=== PATIENT | female | born 1980 | race Caucasian/White ===

== ENCOUNTER 2017-09-28 13:26 | Observation (INO) ==
[2017-09-28] MEDS ORDERED: ALBUTEROL SULFATE 5 MG/ML NEB SOLUTION BOTTLE NEB ONE (13:48)
--- NOTE | 2017-09-28 14:12 | Emergency Department Note ---
General Adult HPI - General Chief complaint: Cold/Flu Symptoms Stated complaint: cough Time Seen by Provider: 09/28/17 13:32 Source: patient Mode of arrival: ambulatory Limitations: no limitations - History of Present Illness HPI Narrative: 37-year-old female presents with worsening cough and shortness of breath. She has had this for about a week. She does have a history of asthma and usually uses albuterol at home. She was seen at [facility] and diagnosed with pneumonia. She was given a Z-Ant to start and then they started her on Levaquin on Monday. She is taking oral Levaquin as well. She started on a Medrol Dosepak but then went back on Monday because she was not feeling better and they started her on 50 mg of prednisone daily. She was sent here for further evaluation. She has not had any blood work done. She is using DuoNeb' s every 4 hours at home. Her last DuoNeb was around noon. She has had fevers at home ranging from 100.1-100.3. She did have a fever of 100.3 before she left home. She gets short of breath when she exerts herself. She is using a nicotine patch at this time and is not smoking. She denies nausea vomiting or diarrhea. - Related Data Home Medications Medication Instructions Recorded Confirmed HYDROcodone/APAP 10/325MG [[place] 10 mg PO Q4HP PRN 08/26/15 05/30/17 10/325Mg] Ondansetron [Zofran Odt] 4 mg PO Q4HP PRN 08/26/15 05/30/17 Sertraline [Zoloft] 100 mg PO HS 08/26/15 05/30/17 Topiramate [Topamax] 125 mg PO HS 08/26/15 05/30/17 Previous Rx's Medication Instructions Recorded cyclobenzaprine 10 mg tablet 10 mg PO qhs #30 tab 05/30/17 Allergies Allergy/AdvReac Type Severity Reaction Status Date / Time bupropion [From Wellbutrin] AdvReac Intermediate RAPID HR Verified 09/28/17 13: 30 Review of Systems All systems ED: reviewed and negative except as stated. Past Medical History - Past Medical History Medical history: Reports: asthma Psychiatric history: Reports: depression [employer] history: Reports: non-contributory Surgical history ED: Reports: cholecystectomy Family history: Reports: non-contributory - Social History smoking status: Current every day smoker Alcohol use: Reports: None Drug use: Reports: none Physical Exam Limitations: no limitations General appearance: alert, in no apparent distress Head: atraumatic Eye: Present: normal appearance. Absent: conjunctival injection Neck: Present: normal inspection, full ROM Chest: Present: normal inspection, symmetric chest wall rise Respiratory: Present: wheezes (in all hughes) Cardiovascular: Present: tachycardia, normal heart sounds Abdominal: Present: soft, normal bowel sounds. Absent: tenderness Extremities: Present: normal inspection, full ROM Neurological: Present: alert, oriented X3 Psychiatric: Present: normal affect, normal mood Skin: Present: warm, dry, intact Course Course Narrative: She will be admitted by Dr. Espinoza. Vital Signs Temperature 98.2 F 09/28/17 13:26 Pulse Rate 99 H 09/28/17 13:26 Respiratory Rate 16 09/28/17 13:26 Blood Pressure 134/89 09/28/17 13:26 Pulse Oximetry (%) 98 09/28/17 13:26 Temperature 99.2 F H 09/28/17 14:08 Pulse Rate 121 H 09/28/17 15:24 Respiratory Rate 18 09/28/17 13:40 Blood Pressure 129/80 09/28/17 15:24 Pulse Oximetry (%) 99 09/28/17 15:24 Medical Decision Making - Medical Records Medical records reviewed: Yes I reviewed the patient's medical records. - Lab Data Lab results reviewed: Yes I reviewed the patient's lab results. Result diagrams: 09/28/17 13:45 09/28/17 13:45 Lab Results 09/28/17 09/28/17 09/28/17 Range/Units 13:45 13:45 13:45 WBC 18.5 H (4.5-11.0) K/mcL RBC 4.94 (4.00-5.20) M/mcL Hgb 14.8 (12.0-15.0) g/dL Hct 44.5 (36.0-48.0) % MCV 90.1 (80.0-100.0) fL MCH 30.0 (26.0-34.0) pg MCHC 33.3 (31.0-36.0) g/dL RDW 12.1 (11.5-14.5) % Plt Count 264 (140-440) K/mcL MPV 9.0 (7.4-10.4) fL Total Counted 100 Seg Neutrophils % 75 (38-78) % Band Neutrophils % Not Reportable Lymphocytes % 17 (15-49) % Monocytes % (Manual) 3 (1-12) % Eosinophils % (Manual) 3 (0-7) % Reactive Lymphocytes 2 (0-2) % Platelet Estimate Normal (NORMAL) RBC Morphology Normal (NORMAL) VBG Lactic Acid 2.3 H (0.5-2.2) mmol/L Sodium 142 (133-145) mmol/L Potassium 3.2 L (3.3-5.1) mmol/L Chloride 100 (96-108) mmol/L Carbon Dioxide 27 (22-30) mmol/L Anion Gap 15.0 (8-16) BUN 7 (6-20) mg/dl Creatinine 0.7 (0.6-1.1) mg/dl GFR Calculation 112 Glucose 102 (70-105) mg/dL Calcium 9.0 (8.6-10.4) mg/dl Total Bilirubin 0.2 (0.0-1.0) mg/dL AST 31 (0-37) U/l ALT 47 H (0-40) U/l Alkaline Phosphatase 87 (39-117) U/L Total Protein 7.4 (5.9-8.4) gm/dL Albumin 3.8 (3.2-5.2) gm/dL Globulin 3.6 (2.2-3.7) gm/dL Albumin/Globulin Ratio 1.1 (1.0-2.3) - Radiology Data Radiology results reviewed: Yes I reviewed the patient's radiology results. Improved infiltrate Disposition Pt seen by [employer]/PA only: Yes Clinical Impression: Mycoplasma pneumonia, Asthma exacerbation Disposition: Xfer As Outpt/Obs ([facility]) Condition: Fair
[2017-09-28 14:15] LABS: Mean Cell Volume 90.1 fL (80.0-100.0); Mean Corpuscular HGB Conc 33.3 g/dL (31.0-36.0); Platelet Count 264 K/mcL (140-440); RBC 4.94 M/mcL (4.00-5.20); Red Cell Distribution Width 12.1 % (11.5-14.5)
--- NOTE | 2017-09-28 14:19 | XRay Report ---
CLINICAL INFORMATION: Cough fever and shortness of breath COMPARISON: 09/26/2017 FINDINGS: Bilateral perihilar infiltrates have improved considerably since the chest x-ray two days ago. Moderate residual is noted in the right infrahilar region. Underlying mild bronchitis changes noted. No effusions. Heart size, mediastinum and pulmonary vessels remain normal IMPRESSION: Moderate improvement in perihilar infiltrates since exam two days ago. Interpreted and Authenticated by: Joshua Juarez 09/28/17
[2017-09-28 14:32] LABS: ALT/SGPT 47 U/l (0-40); Albumin 3.8 gm/dL (3.2-5.2); Albumin/Globulin Ratio 1.1 (1.0-2.3); Alkaline Phosphatase 87 U/L (39-117); Blood Urea Nitrogen 7 mg/dl (6-20)
[2017-09-28] MEDS ORDERED: 0.9 % SODIUM CHLORIDE 1,000 ML IV ONE ×4 (14:35→19:56)
[2017-09-28 14:38] LABS: Eosinophils % (Manual) 3 % (0-7); Lymphocytes % 17 % (15-49); Monocytes % (Manual) 3 % (1-12); Platelet Estimate NORMAL (NORMAL); RBC Morphology NORMAL (NORMAL); Segmented Neutrophils % 75 % (38-78)
[2017-09-28] MEDS ORDERED: KETOROLAC 30 MG/ML VIAL IV ONE (14:56)
[2017-09-28] MEDS ORDERED: ONDANSETRON 4 MG/2 ML VIAL IV ONE (15:46)
[2017-09-28] MEDS ORDERED: HYDROmorphone 2 MG/ML SYRINGE IV PRN (15:46)
--- NOTE | 2017-09-28 16:06 | Internal Med History&Physical ---
Medical - H&P: HPI Patient information: Note initiated : 09/28/17 at 4:01 pm Service Date, if different from initiated Date: [] Patient: Maya Oh 37 y/o F admitted on for Cough. Chief Complaint: [] History of present illness: Ms. Oh is a 37 year old Female presents ot the ER for 7 days history of fever , cough and shortness of breath The patient has cough and sob, for last 7 days, worse with activity better with rest, has some fever and chills and some fatigue, The patient came down with a head cold 7 days ago, and since then has not been feeling well, seen by pcp then, was prescribed a z pack which s he took. The patient was also given steroid, she continued to have fever and chills ,x Ray done showed pna, she was given Levaquin. The patient feels that she has not gotten much better over 2 days and therefore presented to the ER In the ER workup showed leucocytosis, CXR shows improving pneumonia, but she was wheezing on exam, despite being on steroids. She has elevated lactic acid. The patient was therefore admitted to the hospital for further management. All systems: reviewed and no additional remarkable complaints except as stated ( as per hpi) Medical - H&P: PMH Medical history: Medical History (Last Reviewed 05/30/17 @ 09:09 by Meghna Valdivia RN) Mycoplasma pneumonia (Acute) Asthma exacerbation (Acute) Back pain (Acute) Polyarthralgia (Acute) Abnormal immunological finding in serum (Acute) Tremor, unspecified (Chronic) Hypoglycemia (Chronic) Celiac disease (Chronic) Headache (Chronic) Asthma (Chronic) Renal colic (Acute) Bilateral wrist pain (Chronic) Lumbosacral spondylosis with radiculopathy (Chronic) Chronic pain (Chronic) Viral pneumonitis (Acute) Leukocytosis (Acute) History of steroid therapy (Acute) Surgical history: Past Surgical History (Last Reviewed 05/30/17 @ 09:09 by Meghna Valdivia RN) No pertinent past surgical history (Acute) gall bladder surgery. Family history: reviewed and not pertinent Medical - H&P: Meds Home Medications Medication Instructions Recorded Confirmed Type HYDROcodone/APAP 10/325MG [[place] 10 mg PO Q4HP PRN 08/26/15 05/30/17 History 10/325Mg] Ondansetron [Zofran Odt] 4 mg PO Q4HP PRN 08/26/15 05/30/17 History Sertraline [Zoloft] 100 mg PO HS 08/26/15 05/30/17 History Topiramate [Topamax] 125 mg PO HS 08/26/15 05/30/17 History cyclobenzaprine 10 mg tablet 10 mg PO qhs #30 tab 05/30/17 05/30/17 Rx Allergies Allergy/AdvReac Type Severity Reaction Status Date / Time bupropion [From Wellbutrin] AdvReac Intermediate RAPID HR Verified 09/28/17 13: 30 Medical - H&P: Exam - Constitutional Vitals: Temp Pulse Resp BP Pulse Ox 99.2 F H 121 H 18 129/80 99 09/28/17 14:08 09/28/17 15:24 09/28/17 13:40 09/28/17 15:24 09/28/17 15:24 Exam: GENERAL: The patient is a well-developed, well-nourished in no apparent distress. Is alert and oriented x3. VITAL SIGNS: Reviewed and as noted elsewhere. HEENT: Head is normocephalic and atraumatic. Extraocular muscles are intact. Pupils are equal, round, and reactive to light. Nares appeared normal. Mouth appears any without lesions. Mucous membranes are moist. NECK: Normal to inspection, Supple, No lymphadenopathy or thyromegaly. LUNGS: Air entry equal on both sides, martínez exp wheezing, no use of accesory muscles. speaking full sentences. HEART: tachycardic rate and rhythm normal, S1 and S2 heard, no Gallop, S3 or Rub Noted, No Gross murmur heard. ABDOMEN: Soft, nontender, and nondistended. Positive bowel sounds. No hepatosplenomegaly was noted. EXTREMITIES: No cyanosis, clubbing, rash, lesions or edema. NEUROLOGIC: Cranial nerves II through XII are grossly intact. Motor and Sensory System Grossly Intact PSYCHIATRIC: Normal affect, Normal Mood. Appropriate Behavior. SKIN: No ulceration or wounds noted, No jaundice, No rash noted. Medical - H&P: Reslt - Labs CBC & Chem 7: 09/28/17 13:45 09/28/17 13:45 Labs: Short CBC 09/28/17 Range/Units 13:45 WBC 18.5 H (4.5-11.0) K/mcL Hgb 14.8 (12.0-15.0) g/dL Hct 44.5 (36.0-48.0) % Plt Count 264 (140-440) K/mcL BMP 09/28/17 13:45 Sodium 142 Potassium 3.2 L Chloride 100 Carbon Dioxide 27 BUN 7 Creatinine 0.7 Glucose 102 Calcium 9.0 Liver Function 09/28/17 Range/Units 13:45 Total Bilirubin 0.2 (0.0-1.0) mg/dL AST 31 (0-37) U/l ALT 47 H (0-40) U/l Alkaline Phosphatase 87 (39-117) U/L Albumin 3.8 (3.2-5.2) gm/dL Medical - H&P: A/P - Narrative A/P Narrative: A/P Pneumonai Sepsis, with Lactic acidosis Acute asthma exacerbation Chr back pain/ Fibromyalgia Plan Admit to med surg IV fluids IV levquain, CXR shows improvement so medication is workign PO steroids and duonebs for asthma nicotine patch for smoking cessation resume home meds once verified repeat lactate in 3 hrs DVT hep sq regular diet Full code. Social History - Tobacco smoking status: Current every day smoker
[2017-09-28] MEDS ORDERED: diphenhydrAMINE 50 MG/ML VIAL IV ONE (16:11)
[2017-09-28] MEDS ORDERED: NALOXONE HCL 0.4 MG/ML VIAL IV PRN (16:30)
[2017-09-28] MEDS ORDERED: MAGNESIUM HYDROXIDE 30 ML ORAL.SUSP PO PRN (16:30)
[2017-09-28] MEDS ORDERED: ONDANSETRON 4 MG/2 ML VIAL IV PRN (16:30)
[2017-09-28] MEDS: predniSONE 20 MG TABLET PO SCH (16:40)
[2017-09-28] MEDS: HYDROcodone/APAP 10/325MG TABLET PO PRN ×2 (17:06→21:18)
[2017-09-28] MEDS: LEVOFLOXACIN 750 MG/150 ML BAG IV SCH (17:08)
[2017-09-28] MEDS: IPRATROPIUM/ALBUTEROL 3 ML AMPUL.NEB NEB SCH ×2 (18:55→23:04)
[2017-09-28] MEDS ORDERED: POTASSIUM CHLORIDE 40 MEQ in DEXTROSE 5% IN WATER 500 ML IV ONE (20:09)
[2017-09-28] MEDS: 0.9 % SODIUM CHLORIDE 10 ML SYRINGE IV SCH (20:10)
[2017-09-28] MEDS ORDERED: POTASSIUM CHLORIDE 20 MEQ/10 ML VIAL IV ONE (21:09)
[2017-09-28] MEDS: HEPARIN 5,000 UNIT/ML VIAL SQ SCH (21:12)
[2017-09-28] MEDS: FAMOTIDINE 20 MG TABLET PO SCH (21:18)
[2017-09-29] MEDS ORDERED: CYCLOBENZAPRINE 10 MG TABLET PO PRN (00:51)
[2017-09-29] MEDS: IPRATROPIUM/ALBUTEROL 3 ML AMPUL.NEB NEB SCH ×3 (03:16→11:40)
[2017-09-29] MEDS: 0.9 % SODIUM CHLORIDE 10 ML SYRINGE IV SCH (05:40)
[2017-09-29 06:50] LABS: Basophils # (Auto) 0 K/mcL (0.0-0.3); Basophils % (Auto) 0.2 % (0.0-2.0); Eosinophils # (Auto) 0.1 K/mcL (0.0-0.7); Eosinophils % (Auto) 0.4 % (0.0-7.0); Granulocytes % (Auto) 77.8 % (38.0-78.0); Lymphocytes # (Auto) 2.2 K/mcL (1.5-4.8); Lymphocytes % (Auto) 14.3 % (15.5-49.0); Mean Cell Volume 90.7 fL (80.0-100.0); Mean Corpuscular HGB Conc 33.6 g/dL (31.0-36.0); Mean Corpuscular Hemoglobin 30.5 pg (26.0-34.0); Monocytes # (Auto) 1.1 K/mcL (0.1-0.9); Monocytes % (Auto) 7.3 % (1.0-12.0); Platelet Count 258 K/mcL (140-440); RBC 4.06 M/mcL (4.00-5.20); Red Cell Distribution Width 12.5 % (11.5-14.5)
[2017-09-29 07:34] LABS: ALT/SGPT 36 U/l (0-40); Albumin 2.9 gm/dL (3.2-5.2); Albumin/Globulin Ratio 0.9 (1.0-2.3); Alkaline Phosphatase 71 U/L (39-117); Bilirubin,Direct < 0.2 mg/dL (0.0-0.3); Blood Urea Nitrogen 6 mg/dl (6-20); Gamma Glutamyl Transpeptidase 19 U/L (5-36)
[2017-09-29] MEDS: FAMOTIDINE 20 MG TABLET PO SCH (08:56)
[2017-09-29] MEDS: predniSONE 20 MG TABLET PO SCH (08:56)
[2017-09-29] MEDS: LEVOFLOXACIN 750 MG/150 ML BAG IV SCH (08:56)
[2017-09-29] MEDS: HEPARIN 5,000 UNIT/ML VIAL SQ SCH (09:00)
[2017-09-29] MEDS: HYDROcodone/APAP 10/325MG TABLET PO PRN (09:06)
--- NOTE | 2017-09-29 12:42 | Internal Med History&Physical ---
Medical - H&P: HPI Patient information: Note initiated : 09/29/17 at 12:40 pm Service Date, if different from initiated Date: [] Patient: Maya Oh 37 y/o F admitted on 09/28/17 for Cough. Chief Complaint: [] History of present illness: Ms. Oh is a 37 year old Female presents to the ER for 7 days history of fever , cough and shortness of breath The patient has cough and sob, for last 7 days, worse with activity better with rest, has some fever and chills and some fatigue, The patient came down with a head cold 7 days ago, and since then has not been feeling well, seen by pcp then, was prescribed a z pack which s he took. The patient was also given steroid, she continued to have fever and chills ,x Ray done showed pna, she was given Levaquin. The patient feels that she has not gotten much better over 2 days and therefore presented to the ER In the ER workup showed leucocytosis, CXR shows improving pneumonia, but she was wheezing on exam, despite being on steroids. The patient was therefore admitted to the hospital for further management. She had some lactic acidosis which improved with IVFluids, this AM her lactic acid is normal, her wbc count is trending down, she has minimal wheezing on exam and she is able to ambulate well Given her prolonged symptoms, she will complete another 7 day course of levofloxacin at discharge She is already on a good prednison taper which I have advised her to continue. Medical - H&P: Meds Home Medications Medication Instructions Recorded Confirmed Type HYDROcodone/APAP 10/325MG [[place] 10 mg PO Q4HP PRN 08/26/15 09/28/17 History 10/325Mg] Ondansetron [Zofran Odt] 4 mg PO Q4HP PRN 08/26/15 09/28/17 History Sertraline [Zoloft] 100 mg PO HS 08/26/15 09/28/17 History Topiramate [Topamax] 125 mg PO HS 08/26/15 09/28/17 History cyclobenzaprine 10 mg tablet 10 mg PO qhs #30 tab 05/30/17 09/28/17 Rx Nicotine [Nicotine Patch] 1 patch TOPICAL DAILY 09/28/17 09/28/17 History Primidone [Mysoline] 100 mg PO HS 09/28/17 09/28/17 History Allergies Allergy/AdvReac Type Severity Reaction Status Date / Time bupropion [From Wellbutrin] AdvReac Intermediate RAPID HR Verified 09/28/17 13: 30 Medical - H&P: Exam - Constitutional Vitals: Temp Pulse Resp BP Pulse Ox 97.3 F 62 16 133/86 94 09/29/17 11:48 09/29/17 11:40 09/29/17 11:48 09/29/17 11:48 09/29/17 11:48 Medical - H&P: Reslt - Labs CBC & Chem 7: 09/29/17 05:06 09/29/17 05:06 Labs: Short CBC 09/28/17 09/29/17 Range/Units 13:45 05:06 WBC 18.5 H 15.1 H (4.5-11.0) K/mcL Hgb 14.8 12.4 (12.0-15.0) g/dL Hct 44.5 36.8 (36.0-48.0) % Plt Count 264 258 (140-440) K/mcL [facility] 09/28/17 09/29/17 13:45 05:06 Sodium 142 143 Potassium 3.2 L 4.4 Chloride 100 107 Carbon Dioxide 27 24 BUN 7 6 Creatinine 0.7 0.5 L Glucose 102 122 H Calcium 9.0 8.0 L Liver Function 09/28/17 09/29/17 Range/Units 13:45 05:06 Total Bilirubin 0.2 < 0.2 (0.0-1.0) mg/dL Direct Bilirubin < 0.2 (0.0-0.3) mg/dL GGT 19 (5-36) U/L AST 31 18 (0-37) U/l ALT 47 H 36 (0-40) U/l Alkaline Phosphatase 87 71 (39-117) U/L Albumin 3.8 2.9 L (3.2-5.2) gm/dL Medical - H&P: Qual - VTE Deep Vein Thrombosis/Pulmonary Embolism Present on Admission: No
--- NOTE | 2017-09-29 12:45 | Discharge Summary ---
Medical - DS: Prov Patient information: Note initiated : 09/29/17 at 12:43 pm Service Date, if different from initiated Date: [] Patient: Maya Oh 37 y/o F admitted on 09/28/17 for Cough. Chief Complaint: [] Date of admission: 09/28/17 16:20 Discharge date: 09/29/17 Admitting clinician: Norah Espinoza Consults: 09/28/17 15:23 Consult to Physician [CONS] Stat Comment: Consulting Provider: Norah Espinoza Reason For Exam: Physician to Consult Discharging clinician: Norah Espinoza Medical - DS: Meds - Discharge Medications Prescriptions: Levofloxacin [Levaquin] 750 mg PO DAILY #4 tab Active and Home Medications: Home Medications HYDROcodone/APAP 10/325MG [[place] 10/325Mg] 10 mg PO Q4HP PRN 08/26/15 [History Confirmed 09/28/17 Last Taken 09/28/17 12:00] Ondansetron [Zofran Odt] 4 mg PO Q4HP PRN 08/26/15 [History Confirmed 09/28/17 Last Taken 09/25/17 08:00] Sertraline [Zoloft] 100 mg PO HS 08/26/15 [History Confirmed 09/28/17 Last Taken 09/27/17 23:00] Topiramate [Topamax] 125 mg PO HS 08/26/15 [History Confirmed 09/28/17 Last Taken 09/27/17 23:00] cyclobenzaprine 10 mg tablet 10 mg PO qhs #30 tab 05/30/17 [Rx Confirmed Last Taken 09/28/17 11:30] Nicotine [Nicotine Patch] 1 patch TOPICAL DAILY 09/28/17 [History Confirmed Last Taken 09/27/17 08:00] Primidone [Mysoline] 100 mg PO HS 09/28/17 [History Confirmed 09/28/17 Last Taken 09/27/17 23:00] Medical - DS: Hosp Hospital course: Ms. Oh is a 37 year old Female presents ot the ER for 7 days history of fever , cough and shortness of breath, The patient came down with a head cold 7 days ago, and since then has not been feeling well, seen by pcp then, was prescribed a z pack which s he took. The patient was also given steroid, she continued to have fever and chills ,x Ray done showed pna, she was given Levaquin. The patient feels that she has not gotten much better over 2 days and therefore presented to the ER. In the ER workup showed leucocytosis, CXR shows improving pneumonia, but she was wheezing on exam, despite being on steroids. Flu test was neg The patient was treated with IV levofloxacin and steroids and dunoebs, she had elevated lactic acid, which improved with fluids,. The patient today is doing well, her lactate is normal, wbc is trending down, she is without need for oxygen, ambulating well, with minimal wheeze, speaking full sentences. The patient is advised antibiotics for another 7 days. She will continue with her steroid taper as before, albuterol prn as needed NO changes in home meds done. Discharge diagnosis: Pneumonia - Time Spent with Patient Total time spent providing and/or coordinating discharge services: Greater than 30 minutes Medical - DS: Exam - Constitutional Vitals: Vital Signs Temp Pulse Pulse Resp BP BP Pulse Ox 09/29/17 11:48 97.3 F 16 133/86 94 09/29/17 11:40 62 18 09/29/17 07:37 62 18 09/29/17 07:26 97.9 F 16 123/75 92 09/29/17 04:00 97.9 F 66 18 122/78 93 09/29/17 00:00 98.7 F 90 18 124/79 92 09/28/17 20:00 98.7 F 107 H 18 117/78 92 09/28/17 18:58 94 09/28/17 18:55 106 H 18 09/28/17 17:55 133 H 16 09/28/17 16:20 99.5 F H 122 H 18 113/78 91 09/28/17 16:17 99.2 F H 141 H 18 125/70 94 09/28/17 16:02 141 H 125/70 94 09/28/17 15:46 124 H 125/70 100 09/28/17 15:24 121 H 129/80 99 09/28/17 15:01 110 H 129/80 100 09/28/17 14:34 109 H 129/81 97 09/28/17 14:08 99.2 F H 09/28/17 13:40 18 09/28/17 13:26 98.2 F 99 H 16 134/89 98 Intake and Output 09/28/17 09/29/17 09/29/17 21:59 05:59 13:59 Intake Total 3950 / 3950 1600 / 1600 300 / 300 Output Total 1800 / 1800 Balance 3950 / 3950 -200 / -200 300 / 300 Intake: IV 3150 / 3150 1000 / 1000 Sodium Chloride 0.9% 1,000 ml @ 1000 / 1000 Wide Open IV BOLUS ONE Rx#: [id number] Oral 800 / 800 600 / 600 300 / 300 Output: Void Amount 1800 / 1800 Other: # Voids 1 2 Weight 184 lb Additional comments: Constitutional; Afebrile, cooperative, alert, not in distress. Respiratory system: Air Entry equal on both sides, minimal wheezing, ambulating hallway without issues, speaking full sentences CABLE LACER- AOOx3, moving all extremities, no gross focal deficit noted. Medical - DS: Data Labs on day of discharge: Labs from last 24 hours 09/29/17 09/29/17 09/29/17 05:06 05:06 05:06 WBC 15.1 H RBC 4.06 Hgb 12.4 Hct 36.8 MCV 90.7 MCH 30.5 MCHC 33.6 RDW 12.5 Plt Count 258 MPV 9.0 Gran % 77.8 Lymph % (Auto) 14.3 L Bates % (Auto) 7.3 Eos % (Auto) 0.4 Baso % (Auto) 0.2 Gran # 11.8 H Lymph # (Auto) 2.2 Bates # (Auto) 1.1 H Eos # (Auto) 0.1 Baso # (Auto) 0 Total Counted Seg Neutrophils % Band Neutrophils % Lymphocytes % Monocytes % (Manual) Eosinophils % (Manual) Reactive Lymphocytes Platelet Estimate RBC Morphology VBG Lactic Acid 1.4 Sodium 143 Potassium 4.4 Chloride 107 Carbon Dioxide 24 Anion Gap 12.0 BUN 6 Creatinine 0.5 L GFR Calculation 125 Glucose 122 H Uric Acid 2.0 L Calcium 8.0 L Phosphorus 3.2 Magnesium 2.0 Total Bilirubin < 0.2 Direct Bilirubin < 0.2 GGT 19 AST 18 ALT 36 Alkaline Phosphatase 71 Lactate Dehydrogenase 209 Total Protein 6.0 Albumin 2.9 L Globulin 3.1 Albumin/Globulin Ratio 0.9 L Triglycerides 72 Influenza A (Rapid) Influenza B (Rapid) 09/28/17 09/28/17 09/28/17 19:01 18:41 13:45 WBC RBC Hgb Hct MCV MCH MCHC RDW Plt Count MPV Gran % Lymph % (Auto) Bates % (Auto) Eos % (Auto) Baso % (Auto) Gran # Lymph # (Auto) Bates # (Auto) Eos # (Auto) Baso # (Auto) Total Counted Seg Neutrophils % Band Neutrophils % Lymphocytes % Monocytes % (Manual) Eosinophils % (Manual) Reactive Lymphocytes Platelet Estimate RBC Morphology VBG Lactic Acid 4.0 H* 2.3 H Sodium Potassium Chloride Carbon Dioxide Anion Gap BUN Creatinine GFR Calculation Glucose Uric Acid Calcium Phosphorus Magnesium Total Bilirubin Direct Bilirubin GGT AST ALT Alkaline Phosphatase Lactate Dehydrogenase Total Protein Albumin Globulin Albumin/Globulin Ratio Triglycerides Influenza A (Rapid) Presumed negative Influenza B (Rapid) Presumed negative 09/28/17 09/28/17 13:45 13:45 WBC 18.5 H RBC 4.94 Hgb 14.8 Hct 44.5 MCV 90.1 MCH 30.0 MCHC 33.3 RDW 12.1 Plt Count 264 MPV 9.0 Gran % Lymph % (Auto) Bates % (Auto) Eos % (Auto) Baso % (Auto) Gran # Lymph # (Auto) Bates # (Auto) Eos # (Auto) Baso # (Auto) Total Counted 100 Seg Neutrophils % 75 Band Neutrophils % Not Reportable Lymphocytes % 17 Monocytes % (Manual) 3 Eosinophils % (Manual) 3 Reactive Lymphocytes 2 Platelet Estimate Normal RBC Morphology Normal VBG Lactic Acid Sodium 142 Potassium 3.2 L Chloride 100 Carbon Dioxide 27 Anion Gap 15.0 BUN 7 Creatinine 0.7 GFR Calculation 112 Glucose 102 Uric Acid Calcium 9.0 Phosphorus Magnesium Total Bilirubin 0.2 Direct Bilirubin GGT AST 31 ALT 47 H Alkaline Phosphatase 87 Lactate Dehydrogenase Total Protein 7.4 Albumin 3.8 Globulin 3.6 Albumin/Globulin Ratio 1.1 Triglycerides Influenza A (Rapid) Influenza B (Rapid) Medical - DS: A/P - Patient/Caregiver Discharge Instructions Activity: as per physical therapy, increase activity as tolerated Diet: Regular Diet Additional Instructions: You were admitted to the hospital with pneumonia and asthma exacerbation. Take Levoflox for 7 days, I have sent prescription for another 4 pills Take your steroid taper as before, Take albuterol every 4-6 hrs as needed for sob. Go to the ER if worsening fever, chills or any other concern You will not be back to full strength soon. I would advise rest for 1 week to recuperate from this infection. - Follow up Plan Disposition: Home, Self-Care Prognosis: Fair Rehab Potential: Fair I certify that the patient requires SNF services: No Overall status at discharge: patient is progressing back to baseline Medical - DS: Qual - VTE Deep Vein Thrombosis/Pulmonary Embolism Present on Admission: No
== END 2017-09-29 14:35 | disposition home or self-care (01) ==
LOC: ED 13:26 → MEDSUR 13:26
PROVIDERS: ADMIT Internal Medicine; ATTEND Internal Medicine